=== PATIENT | male | born 1980 | race Caucasian/White ===

== ENCOUNTER 2016-09-13 19:00 | Emergency (ER) | payer SELFPAY ==
[~2016-09-13] VITALS: Ht 170.2 cm; Wt 65.0 kg
[2016-09-13 19:03] VITALS: BP 134/84; PULSE 81; RESP 15; TEMP 99.1; O2SAT 99
[2016-09-13 23:27] VITALS: BP 154/89; PULSE 62; RESP 16; O2SAT 100
[2016-09-13] MEDS ORDERED: PANTOPRAZOLE SODIUM 40 MG VIAL IVP ONE (23:30)
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
[2016-09-13 23:46] LABS: AUTOMATED NEUTROPHIL # 2.5 TH/MM3 (1.8-7.7); BASOPHIL % 0.2 % (0.0-2.0); EOSINOPHIL # 0.2 TH/MM3 (0-0.4); EOSINOPHIL % 3.5 % (0.0-4.0); HEMATOCRIT 49.3 % (39.0-51.0); HEMO FLAGS DIFF FINAL; LYMPH % 40.8 % (9.0-44.0); LYMPHOCYTE # 2.5 TH/MM3 (1.0-4.8); MEAN CORPUSCULAR HGB CONC 33.3 % (32.0-36.0); MONO % 15.4 % (0.0-8.0); NEUT % 40.1 % (16.0-70.0); PLATELET COUNT 247 TH/MM3 (150-450); RED BLOOD COUNT 5.88 MIL/MM3 (4.50-5.90); RED CELL DISTRIBUTION WIDTH 13.7 % (11.6-17.2); WHITE BLOOD COUNT 6.1 TH/MM3 (4.0-11.0)
[2016-09-14 00:03] LABS: ANION GAP 3 MEQ/L (5-15); AST (GOT) 21 U/L (15-37); BICARBONATE 32.8 MEQ/L (21.0-32.0); BLOOD UREA NITROGEN 11 MG/DL (7-18); CHLORIDE 104 MEQ/L (98-107); GLOMERULAR FILTRATION RATE 91 ML/MIN (>89); POTASSIUM 3.9 MEQ/L (3.5-5.1); SODIUM (NA) 140 MEQ/L (136-145)
[2016-09-14 00:06] LABS: ALKALINE PHOSPHATASE 92 U/L (45-117); ALT (GPT) 32 U/L (12-78); TOTAL BILIRUBIN ADULT 0.3 MG/DL (0.2-1.0)
[2016-09-14 00:14] LABS: AMPHETAMINE, URINE NEG (NEG); BARBITURATES, URINE NEG (NEG); COCAINE, URINE NEG (NEG)
[2016-09-14 00:16] LABS: BLOOD, URINE NEG (NEG); COMMENT (UR) CULT NOT INDICATED; CULTURE IF INDICATED CULT NOT INDICATED; GLUCOSE,URINE NEG (NEG); KETONE, URINE NEG (NEG); MUCUS URINE FEW /lpf (OCC); NITRITE,URINE NEG (NEG); PH, URINE 5.5 (5.0-8.5); URINE COLOR YELLOW (YELLW/STRAW)
[2016-09-14] MEDS ORDERED: OMEP20TA PO (02:55)
[2016-09-14 03:04] VITALS: BP 105/71
== END 2016-09-14 03:06 | disposition home or self-care (01) ==
LOC: NEPE 19:00
DX: K29.70 Gastritis, unspecified, without bleeding (principal)
CPT/HCPCS: 80053; 80307; 81001; 83690; 85025; 96374; 99284; C9113

== ENCOUNTER 2016-09-17 09:04 | Emergency (ER) | payer SELFPAY ==
[~2016-09-17] VITALS: Ht 170.2 cm; Wt 75.8 kg
[~2016-09-17 09:04] MED LIST: OMEP20TA PO
[2016-09-17 09:06] VITALS: BP 142/74; PULSE 82; RESP 16; TEMP 99; O2SAT 99
--- NOTE | 2016-09-17 09:38 | PD ---
HPI Chief Complaint: Medical Clearance Time Seen by Provider: 09:38 Travel History International Travel<30 days: No Contact w/Intl Traveler<30days: No Traveled to known affect area: No History of Present Illness HPI 36-year-old male presents to the emergency department requesting shots for hepatitis, ink poisoning, nicotine poisoning, and an injection to help him get use to breathing the air. He says he needs obvious shots to help him. 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 He says he has increased poisoning in his veins from getting his tattoos. He reports his veins are getting thin and drying up. He says he is new to the area and is getting use to breathing the air and he knows there is an injection to help him breathe air. He has no emergent medical complaints. No other modifying factors or associated signs and symptoms. History Social History Alcohol Use: Yes Tobacco Use: Yes Allergies-Medications (Allergen,Severity, Reaction): Coded Allergies: Pineapple (Verified Allergy, Severe, 09/17/16) Reported Meds & Prescriptions Reported Meds & Active Scripts Active Omeprazole 20 Mg Tab 20 Mg PO DAILY 5 Days Review of Systems Except as stated in HPI: all other systems reviewed are Neg Physical Exam Narrative GENERAL: Well-nourished, well-developed male patient, in no acute distress; afebrile, nontoxic-appearing SKIN: Warm and dry. Bilateral upper extremities with multiple tattoos and I see no signs of infection. HEAD: Atraumatic. Normocephalic. EYES: Pupils equal and round. ENT: Mucosa pink and moist. NECK: Supple. Trachea midline. CARDIOVASCULAR: Regular rate and rhythm. No murmur appreciated. RESPIRATORY: No accessory muscle use. Clear to auscultation. Breath sounds equal bilaterally. GASTROINTESTINAL: Abdomen soft, non-tender, nondistended. Hepatic and splenic margins not palpable. Bowel sounds are active 4 quadrants. MUSCULOSKELETAL: No obvious deformities. No clubbing. No cyanosis. No edema. NEUROLOGICAL: Awake and alert. Oriented 3. No obvious cranial nerve deficits. Motor grossly within normal limits. Normal speech. Moves all extremities. 5/5 strength to all extremities. PSYCHIATRIC: No delusional thought processes. No hallucinations. Data Data Last Documented VS Vital Signs Date Time Temp Pulse Resp B/P Pulse Ox O2 Delivery O2 Flow Rate FiO2 09/17/16 09:06 99.0 82 16 142/74 99 Room Air [facility] Medical Screen Exam Complete: Yes Emergency Medical Condition: No Differential Diagnosis Medical clearance, malingering, bipolar disorder Narrative Course 36-year-old male requesting vaccinations and injections for nonemergent complaints. The patient was provided information to the health department. Vital signs are stable and the patient is stable for outpatient follow-up and treatment. The patient has no urgent or emergent medical complaints. There is no emergent or urgent medical need at this time. I instructed the patient to follow up with their primary care provider. A medical screening exam was performed: At the time of evaluation the presenting medical condition was determined not to be of an emergent nature. The patient was given the option of receiving additional care, but declined. Patient was given options for additional community resources from which to obtain care. The Patient Has Been advised to seek medical attention for their presenting complaint. The patient has been advised to return to the ER at any time if an emergent condition develops. Primary Impression: Encounter for medical screening examination Condition: Stable Alba Najera September 17, 2016 09:38
== END 2016-09-17 10:30 | disposition left against medical advice (07) ==
LOC: NEPK 09:04
DX: Z03.89 Encounter for observation for other suspected diseases and conditions ruled out (principal)
CPT/HCPCS: 99281

== ENCOUNTER 2016-09-25 12:24 | Inpatient (IN) | payer MEDICAID, OTHER ==
[~2016-09-25] VITALS: Ht 170.2 cm; Wt 72.9 kg
[2016-09-25 12:25] VITALS: BP 165/80; PULSE 92; RESP 16; TEMP 98.4; O2SAT 99
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
[2016-09-25 14:17] LABS: AUTOMATED NEUTROPHIL # 3.2 TH/MM3 (1.8-7.7); BASOPHIL % 0.5 % (0.0-2.0); EOSINOPHIL # 0.1 TH/MM3 (0-0.4); EOSINOPHIL % 1.1 % (0.0-4.0); HEMATOCRIT 48.7 % (39.0-51.0); HEMO FLAGS DIFF FINAL; LYMPH % 27.7 % (9.0-44.0); LYMPHOCYTE # 1.5 TH/MM3 (1.0-4.8); MEAN CELL VOLUME 83.3 FL (80.0-100.0); MEAN CORPUSCULAR HEMOGLOBIN 28.3 PG (27.0-34.0); MEAN CORPUSCULAR HGB CONC 33.9 % (32.0-36.0); MONO % 12.5 % (0.0-8.0); NEUT % 58.2 % (16.0-70.0); PLATELET COUNT 269 TH/MM3 (150-450); RED BLOOD COUNT 5.85 MIL/MM3 (4.50-5.90); RED CELL DISTRIBUTION WIDTH 13.8 % (11.6-17.2); WHITE BLOOD COUNT 5.5 TH/MM3 (4.0-11.0)
[2016-09-25 14:29] LABS: BARBITURATES, URINE NEG (NEG); COCAINE, URINE NEG (NEG)
[2016-09-25 14:32] LABS: ANION GAP 7 MEQ/L (5-15); AST (GOT) 18 U/L (15-37); BICARBONATE 30.4 MEQ/L (21.0-32.0); BLOOD UREA NITROGEN 12 MG/DL (7-18); CHLORIDE 104 MEQ/L (98-107); GLOMERULAR FILTRATION RATE 91 ML/MIN (>89); SODIUM (NA) 141 MEQ/L (136-145)
[2016-09-25 14:35] LABS: ALKALINE PHOSPHATASE 91 U/L (45-117); ALT (GPT) 28 U/L (12-78); TOTAL BILIRUBIN ADULT 0.3 MG/DL (0.2-1.0)
--- NOTE | 2016-09-25 15:15 | PD ---
Physical Exam Date Seen by Provider: September 25, 2016 Time Seen by Provider: 15:13 Narrative Patient was assessed by me. Currently being followed up by the PA and I'm supervising her. Patient seems frankly psychotic at this point. He was answering all my questions with a very paranoid delusion. Speech has been very pressured. Questions are answered by him tangentially probably from the paranoid delusions. He says he is here to get the pills pumped out from his stomach that he had received a week to 10 days ago when he came to this emergency room. He finished taking the pills 5 days ago. Patient is homeless and appears to be somewhat disheveled and sunburned. He does not appear to be in any significant distress. Vital signs are relatively stable. Plan would be to medically clear him and then have psych assessment. Due to his significant psychosis patient will be Calix acted since he seems to be unsafe to others. Data Data Last Documented VS Vital Signs Date Time Temp Pulse Resp B/P Pulse Ox O2 Delivery O2 Flow Rate FiO2 09/26/16 06:21 62 19 120/57 97 Room Air 09/25/16 12:25 98.4 Orders Complete Blood Count With Diff (09/25/16 13:53) Comprehensive Metabolic Panel (09/25/16 13:53) Psych Screen (09/25/16 13:53) Drug Screen, Random Urine (09/25/16 13:53) Alcohol (Ethanol) (09/25/16 13:53) ^ Sitter (09/25/16 13:57) Diet Regular Basic (09/25/16 Dinner) Diet Regular Basic (09/26/16 Breakfast) Admit Order (Ed Use Only) (09/26/16 ) Admit To Inpatient Psych (09/26/16 ) Vital Signs (Adult) [id number] (09/26/16 08:41) Activity Oob Ad Mariah (09/26/16 08:41) Level Of Observation (Psych) (09/26/16 08:41) Aims-Abnormal Invol Move Scale ONCE (09/26/16 08:41) Lorazepam (Ativan) (09/26/16 08:45) Lorazepam Inj (Ativan Inj) (09/26/16 08:45) Diphenhydramine (Benadryl) (09/26/16 08:45) Acetaminophen (Tylenol) (09/26/16 08:45) Magnesium Hydroxide Liq (Milk Of Magnesi (09/26/16 08:45) Al-Mag Hy-Si 40-40-4 Mg/Ml Liq (Mag-Al P (09/26/16 08:45) Nicotine 21 Mg Patch.24 Hr (Habitrol 21 (09/26/16 09:00) Benztropine (Cogentin) (09/26/16 08:45) Benztropine Inj (Cogentin Inj) (09/26/16 08:45) Lipid Profile (09/27/16 06:00) Hemoglobin (Hgb) A1c (09/27/16 06:00) Ob/Psych Drug Screen, Urine (09/26/16 08:41) Remove Old Patch (09/26/16 09:00) Haloperidol (Haldol) (09/26/16 09:00) Labs Laboratory Tests Test 09/25/16 14:00 White Blood Count 5.5 TH/MM3 Red Blood Count 5.85 MIL/MM3 Hemoglobin 16.5 GM/DL Hematocrit 48.7 % Mean Corpuscular Volume 83.3 FL Mean Corpuscular Hemoglobin 28.3 PG Mean Corpuscular Hemoglobin 33.9 % Concent Red Cell Distribution Width 13.8 % Platelet Count 269 TH/MM3 Mean Platelet Volume 8.7 FL Neutrophils (%) (Auto) 58.2 % Lymphocytes (%) (Auto) 27.7 % Monocytes (%) (Auto) 12.5 % Eosinophils (%) (Auto) 1.1 % Basophils (%) (Auto) 0.5 % Neutrophils # (Auto) 3.2 TH/MM3 Lymphocytes # (Auto) 1.5 TH/MM3 Monocytes # (Auto) 0.7 TH/MM3 Eosinophils # (Auto) 0.1 TH/MM3 Basophils # (Auto) 0.0 TH/MM3 CBC Comment DIFF FINAL Differential Comment Sodium Level 141 MEQ/L Potassium Level 4.0 MEQ/L Chloride Level 104 MEQ/L Carbon Dioxide Level 30.4 MEQ/L Anion Gap 7 MEQ/L Blood Urea Nitrogen 12 MG/DL Creatinine 0.95 MG/DL Estimat Glomerular Filtration 91 ML/MIN Rate Random Glucose 82 MG/DL Calcium Level 9.3 MG/DL Total Bilirubin 0.3 MG/DL Aspartate Amino Transf 18 U/L (AST/SGOT) Alanine Aminotransferase 28 U/L (ALT/SGPT) Alkaline Phosphatase 91 U/L Total Protein 7.8 GM/DL Albumin 4.2 GM/DL Urine Opiates Screen NEG Urine Barbiturates Screen NEG Urine Amphetamines Screen NEG Urine Benzodiazepines Screen NEG Urine Cocaine Screen NEG Urine Cannabinoids Screen NEG Ethyl Alcohol Level LESS THAN 3 MG/DL MDM Supervised Visit with TJ: Yes Diagnosis Primary Impression: Acute psychosis Scripts Unable to Obtain Active Prescriptions or Reported Meds Alex Chandler MD September 25, 2016 15:15
[2016-09-25 18:30] VITALS: BP 130/79; PULSE 63; RESP 16; O2SAT 98
[2016-09-25 21:21] VITALS: BP 134/86; PULSE 89; RESP 16; O2SAT 98
[2016-09-25 22:00] VITALS: BP 124/66; PULSE 62; RESP 16; O2SAT 100
[2016-09-26 02:17] VITALS: BP 111/53; PULSE 54; RESP 17; O2SAT 97
[2016-09-26 06:21] VITALS: BP 120/57; PULSE 62; RESP 19; O2SAT 97
[2016-09-26] MEDS ORDERED: diphenhydrAMINE HCL 50 MG CAP PO PRN (08:45)
[2016-09-26] MEDS ORDERED: ACETAMINOPHEN 325 MG TAB PO PRN (08:45)
[2016-09-26] MEDS ORDERED: BENZTROPINE MESYLATE 2 MG/2 ML VIAL IM PRN (08:45)
[2016-09-26] MEDS ORDERED: ALUMINUM/MAGNESIUM/SIMETH 30 ML CUP PO PRN (08:45)
[2016-09-26] MEDS ORDERED: LORazepam 2 MG/ML VIAL IM PRN (08:45)
[2016-09-26] MEDS ORDERED: BENZTROPINE MESYLATE 1 MG TAB PO PRN (08:45)
[2016-09-26] MEDS ORDERED: MAGNESIUM HYDROXIDE SUSP 30 ML CUP PO PRN (08:45)
[2016-09-26] MEDS ORDERED: LORazepam 1 MG TAB PO PRN (08:45)
[2016-09-26] MEDS: REMOVE OLD PATCH T-DERMAL SCH (09:00)
[2016-09-26] MEDS: HALOPERIDOL 5 MG TAB PO SCH ×2 (09:00→21:00)
[2016-09-26] MEDS: NICOTINE 21 MG/24 HR PATCH T-DERMAL SCH (09:00)
--- NOTE | 2016-09-26 09:28 | MH ---
cc: HARRIET GIVENS DATE OF ADMISSION 09/26/2016 ADMISSION DIAGNOSES 1. Other psychotic disorder, F28 LEGAL STATUS The patient is presently not capacitated to consent for admission or for medications. Involuntary status. Request health care surrogate and guardian advocate. HISTORY OF PRESENT ILLNESS Mr. Wise is a 36-year-old male of uncertain past psychiatric history who presented initially to the emergency department requesting that his stomach be pumped after taking pills that were reportedly prescribed from here. He was noted by the ED provider to be quite erratic and was placed under the [facility]. Reviewing our electronic medical record, I see no prior psychiatric consultations or admissions within our system. It does appear that he was seen in April of last year for psychiatric complaints and was sent to [facility] at that time. The patient seen and examined. Chart reviewed. Case discussed with nursing staff in the J pod. On my examination today, the patient presents as disorganized and delusional. When I endeavor to obtain past psychiatric history for example, the patient tells me "I had my balls bit by a dog when I was younger. My balls are too high." When I tried to explore again whether he has a history of psychiatric issues, he says "yes I have psychiatric issues because everything has to do with testicles. I need hernia pills for my balls. I know how high they are supposed to be." When I inquire about audiovisual hallucinations, he says "I hear far away voices saying I need my balls lowered." He also articulates a belief that his elevated testicles are "sucking up everything, all my extra air down there." When I inquire about suicidal or homicidal ideation, he says "I am not going to give you my balls." He also alludes to his mother being a Elastic Attacher Coverstitch's and his father "close enough." Affect is bizarre. The psychiatric interview is quite limited because of his degree of thought disorganization. PAST PSYCHIATRIC HISTORY Fairly limited as noted above. When I inquire about a history of psychiatric admissions, this is fruitless. When I inquire about a history of suicide attempts, he says "I do not think so." It does appear from the medical record that he was sent to [facility] when he was here in April. FAMILY HISTORY The patient says "I drink beer piss." CHEMICAL DEPENDENCY HISTORY The patient denies any abuse of drugs or alcohol initially, but then says "I tried sarai once." He is unable to tell me what this substance is. SOCIAL HISTORY The patient seems to say that he lives at the [facility]. He is single with no children. He is high school educated. When I inquire about history. He is says "wearing pullbacks and socks?" He denies any legal history. He says that the only guns that he has "are in my underwear." PAST MEDICAL HISTORY The patient reports no history of medical problems. ALLERGIES Includes allergies to PINEAPPLE. REVIEW OF SYSTEMS Quite limited because of the patient's current mental state. No reported physical complaints at this time. PHYSICAL EXAMINATION Temperature is 98.4, pulse 62, and respirations 19, blood pressure 120/57, pulse oximetry 97% on room air. Physical examination completed by the ED provider. On my examination today, the patient appears to be in no acute physical distress. No motor abnormalities noted. LABORATORIES REVIEWED CBC is unremarkable. CMP is unremarkable. Basic urine toxicology screen is negative and alcohol level was undetectable. MENTAL STATUS EXAM The patient is in hospital gown. He is fairly well-groomed and appears to be maintaining basic hygiene. He is awake and alert and oriented to person and hospital at least. No evidence of delirium. No motor abnormalities noted. Speech is within normal limits for rate, tone and volume. Language and fund of knowledge are difficult to assess given thought process. Mood and affect are odd. Thought process disorganized. Associations are perseverative on his testicles. It appears there is some delusion perhaps somatic in nature of his testicles being to high. Purports to hear auditory hallucinations as detailed above. No visual hallucinations. Unable to deny suicidal or homicidal ideation as detailed above. Unreliable to contract for safety. Insight and judgment seem poor. ASSESSMENT/PLAN This is a 36-year-old male with psychiatric history as detailed above who is presently in the J pod under a [facility] initiated by the ED provider. The patient seems to be perseverating on his testicles in a fairly psychotic fashion. My differential for this would include exacerbation of a primary psychotic illness, psychotic illness due to a heretofore unidentified substance, and malingering for long term as it appears that he is presently homeless. His presentation is somewhat excessive lending some credence to the malingering hypothesis. I am less suspicious of a medical etiology as the patient has no evident laboratory abnormalities or physical examination findings that would suggest one. I will admit the patient to the inpatient psychiatric unit for observation and stabilization if necessary. Admit inpatient. Involuntary status. I have completed first opinion. Consult for second opinion. Request health care surrogate and guardian advocate. I did endeavor to call for collateral, but the patient is unable to provide me any numbers and there are none in the EMR for me to call. I will initiate Haldol 5 mg daily pending approval of a healthcare surrogate when we get one. I will check an extended urine toxicology screen. Ativan as needed for anxiety, Cogentin as needed for EPS, Benadryl as needed for sleep. Vitals every shift. Counselor to see and try to obtain collateral. Disposition planning. Estimated length of stay: 5-7 days. Harriet MODI /8:47 AM /9:10 AM MTDLiliana
[2016-09-26] MEDS ORDERED: OLANZapine IM 10 MG VIAL IM ONE (11:00)
[2016-09-26 12:15] VITALS: BP 113/58; PULSE 59; RESP 18; TEMP 97.4; O2SAT 97
[2016-09-26 17:19] VITALS: BP 110/66; PULSE 60; RESP 18; TEMP 97.6
[2016-09-27 01:10] LABS: AMPHETAMINE, URINE NEG (NEG); BARBITURATES, URINE NEG (NEG); COCAINE, URINE NEG (NEG)
[2016-09-27 01:26] LABS: AMPHETAMINE, URINE NEG (NEG)
[2016-09-27 06:10] VITALS: BP 107/63; PULSE 56; RESP 18; TEMP 97.4; O2SAT 96
[2016-09-27] MEDS: NICOTINE 21 MG/24 HR PATCH T-DERMAL SCH (09:00)
[2016-09-27] MEDS: HALOPERIDOL 5 MG TAB PO SCH ×2 (09:00→21:00)
[2016-09-27] MEDS: REMOVE OLD PATCH T-DERMAL SCH (09:00)
[2016-09-27 10:34] LABS: HDL CHOLESTEROL 56.9 MG/DL (40.0-60.0); LDL CHOLESTEROL 53 MG/DL (0-99)
--- NOTE | 2016-09-27 10:36 | HHI.PYPN ---
Subjective Remarks Patient seen and examined with nursing staff. Chart reviewed. Case discussed with nurse who reports patient has been no behavioral problem. Charting indicates that he is eating well and slept well overnight. On my examination today, patient is more relevant in conversation. He is polite and cooperative. He continues to perseverate on his testicles, noting "I'm breathing everything out. My testicles are coming down a little, the left one more than the right." He thinks this might be related to a new genital piercing he got. He does note that sometimes "when I sit down on metal or cement, I think I'm being molested by hands on the floor." He does report a history of psychotropic medication treatment including Risperdal and maybe lithium, but he does not believe he has a mental illness issue in need of treatment at this time. He does not really believe he needs to be in the psychiatric hospital but is willing to remain overnight for observation. No SI/HI. Review of Systems ROS Limitations: Psychotic, Poor Historian Except as stated in HPI: all other systems reviewed are Neg Objective Alert: Yes [place]: Person, Place, Date Mood: Calm Affect: Appropriate Memory Intact: Comment (Seems at least fair) Hallucinations: Other (No AVH) Delusions: Yes Delusion Type: Other (bizarre, somatic) Suicidal: Ideation (No SI) Homicidal: Ideation (No HI) Insight/Judgment Poor Remarks TP fairly linear within delusional system. Speech wnl for rate, tone, volume. No abnormal motor movements noted. Grooming and hygiene appear good. Labs Test 09/27/16 08:43 Triglycerides Level 88 MG/DL Cholesterol Level 127 MG/DL LDL Cholesterol 53 MG/DL HDL Cholesterol 56.9 MG/DL Cholesterol/HDL Ratio 2.23 RATIO Labs reviewed. Vitals/IOs Vital Signs Date Time Temp Pulse Resp B/P Pulse Ox O2 Delivery O2 Flow Rate FiO2 09/27/16 06:10 97.4 56 18 107/63 96 09/26/16 06:21 Room Air Assessment & Plan Problem List: (1) Other psychotic disorder not due to a substance or known physiological condition ICD Code: F28 Assessment & Plan Patient continues to describe bizarre and somatic delusions but otherwise seems to be attending to his ADLs. No evidence of any suicidality/homicidality. I have suggested that the patient accept medication treatment as he reportedly has in the past, but he declines. I am considerably less certain that the patient meets [facility] criteria at this point. I will monitor overnight, but if the patient continues to present as he does today, he likely will not meet [facility] Act criteria at this time and so will have to be discharged at expiry of the [facility] Act tomorrow afternoon unless he can be convinced to remain here voluntarily for treatment. Justification for Cont. Inpt. Monitoring for impairments in safety; so far none. Discharge Planning Pending outcome of observation Romulo Brown MD September 27, 2016 10:36
[2016-09-27 16:45] VITALS: BP 131/61; PULSE 59; RESP 16; TEMP 98; O2SAT 100
[2016-09-27 16:51] LABS: HEMOGLOBIN A1a 1.2 %; HEMOGLOBIN A1b 1.6 %; HEMOGLOBIN Ao 85.7 %; HEMOGLOBIN LA1C 1.8 %; HEMOGLOBIN P3 3.5 %
[2016-09-28 06:11] VITALS: BP 101/55; PULSE 58; RESP 18; TEMP 98; O2SAT 100
--- NOTE | 2016-09-28 10:01 | HHI.DS ---
Psychiatry Discharge Summary Inpatient Psychiatric care?: Yes Advance Directive: No Reason Not Provided: DOES NOT HAVE Mental Health AdvanceDirective: No Health Care Proxy: No Admission Admission Date September 26, 2016 at 08:44 Admission Diagnosis: (1) Other psychotic disorder not due to a substance or known physiological condition ICD Code: F28 Brief History Mr. Wise is a 36-year-old male of uncertain past psychiatric history who presented initially to the emergency department requesting that his stomach be pumped after taking pills that were reportedly prescribed from here. He was noted by the ED provider to be quite erratic and was placed under the [facility]. Reviewing our electronic medical record, I see no prior psychiatric consultations or admissions within our system. It does appear that he was seen in April of last year for psychiatric complaints and was sent to [facility] at that time. The patient seen and examined. Chart reviewed. Case discussed with nursing staff in the J pod. On my examination today, the patient presents as disorganized and delusional. When I endeavor to obtain past psychiatric history for example, the patient tells me "I had my balls bit by a dog when I was younger. My balls are too high." When I tried to explore again whether he has a history of psychiatric issues, he says "yes I have psychiatric issues because everything has to do with testicles. I need hernia pills for my balls. I know how high they are supposed to be." When I inquire about audiovisual hallucinations, he says "I hear far away voices saying I need my balls lowered." He also articulates a belief that his elevated testicles are "sucking up everything, all my extra air down there." When I inquire about suicidal or homicidal ideation, he says "I am not going to give you my balls." He also alludes to his mother being a Receptionist Telephone Operator's and his father "close enough." Affect is bizarre. The psychiatric interview is quite limited because of his degree of thought disorganization. Tobacco Use In Past 30 Days: No Tobacco Past 30 Days Alcohol Use: Never Hospital Course Patient was admitted to a locked, inpatient psychiatric unit. Appropriate precautions were in place throughout patient's hospital stay. Patient was seen and examined daily on the unit by psychiatry and also visited by counselor. Patient declined medication management. Despite this, he seemed to have improvement in his presenting psychiatric symptomatology during the course of his hospital stay. There was no evidence of any suicidality or homicidality on the inpatient unit. Patient remained in good behavioral control. Charting indicates that he has been sleeping and eating well. On the day of discharge: Patient seen and examined with nurse. Chart reviewed. Case discussed with nursing staff who reports that the patient has been no behavioral problem overnight. On my examination today, the patient is calm and cooperative with examination. His thought process seems logical and linear. He requests discharge from the inpatient psychiatric unit. He does continue to exhibit a somatic preoccupation, but this is significantly attenuated versus his initial presentation. There is no chante delusional material today. He denies audiovisual hallucinations. He denies suicidal or homicidal ideation, intent or plan. He has no physical complaints. He continues to decline any psychotropic medications. Weighing the acute, chronic, and protective factors and based on the available evidence, I catering sales manager to a reasonable degree of medical certainty that the patient is at low imminent risk of harm to self or others from a mental illness as defined under the [facility] act and his level of function is adequate for outpatient care. Consequently, the patient does not meet criteria for involuntary psychiatric hospitalization. Given that the patient does not meet criteria for involuntary psychiatric hospitalization and given that he is requesting discharge from the inpatient psychiatric unit today, I must arrange for his discharge today with psychiatric follow-up as arranged by counselor. Patient is also to follow-up with primary care. I counseled the patient regarding warning signs for need to return to the psychiatric emergency room as part of the general safety plan. I have counseled the patient to abstain from substances of abuse. Results Blood Pressure 101 / 55 Vital Signs Date Time Temp Pulse Resp B/P Pulse Ox O2 Delivery O2 Flow Rate FiO2 09/28/16 06:11 98.0 58 18 101/55 100 09/26/16 06:21 Room Air Laboratory Tests Test 09/25/16 14:00 Monocytes (%) (Auto) 12.5 % (0.0-8.0) Laboratory Results Test 09/27/16 08:43 Hemoglobin A1c 5.5 % (4.3-6.0) Triglycerides Level 88 MG/DL (42-150) Cholesterol Level 127 MG/DL (120-200) LDL Cholesterol 53 MG/DL (0-99) HDL Cholesterol 56.9 MG/DL (40.0-60.0) Summary of Procedures None done Imaging None done Pending results at discharge: Yes (Extended tox screen results pending.) Medications # of Antipsychotic meds at D/C: 0 Approp Antipsych med options 1 - Minimum of three failed multiple trials of monotherapy. 2 - Documented plan to taper to monotherapy due to previous use of multiple meds OR cross-taper in progress at D/C. 3 - Documentation of augmentation of Clozapine. 4 - Justification other than those listed in allowable values 1-3, document here : Discharge Discharge Date: September 28, 2016 Discharge Diagnosis: (1) Other psychotic disorder not due to a substance or known physiological condition Diagnosis: Principal (stabilized) ICD Code: F28 GAF on discharge is 55. Mental Status Exam at Disch Patient is casually dressed. He is well groomed and certainly maintaining basic hygiene. He is awake and alert and oriented 3. No evidence of delirium. No abnormal motor movements noted. Speech is within normal limits for rate, tone and volume. Language and fund of knowledge seemed average. Mood is good and affect is full and reactive. Thought process linear. No loosening of associations. No evident delusional material although somatic preoccupation does persist. Denies audiovisual hallucinations. Denies suicidal or homicidal ideation, intent or plan. Insight and judgment are fair at best. Pt Condition on Discharge: Stable Discharge Disposition: Discharge Home Discharge Instructions Diet Instructions: As Tolerated, No Restrictions Activities you can perform: Weight Bearing as Omaira Scheduled Appointment: [facility] Appointment Date: October 04, 2016 Appointment Time: 7:30am Medication Profile: Unable to Obtain Active Prescriptions or Reported Meds Discharge Time <= 30 minutes Discharge/Advance Care Plan Health Problems: (1) Other psychotic disorder not due to a substance or known physiological condition Goals to promote your health * To prevent worsening of your condition and complications * To maintain your health at the optimal level Directions to meet your goals Take your medications as prescribed Follow your dietary instruction Follow activity as directed Keep your appointments as scheduled Take your immunizations and boosters as scheduled If your symptoms worsen call your PCP, if no PCP go to Urgent Care Center or Emergency Room For 10/12 questions related to your inpatient stay or results of tests pending at discharge, please contact Dr. Romulo Brown at Smoking is Dangerous to Your Health. Avoid second hand smoking Romulo Brown MD September 28, 2016 10:01
[2016-10-01 11:00] LABS: ECSTASY (MDMA) UR NEG (NEG); HEROIN (6-ACETYLMORPHINE) UR NEG (NEG); OBMETHADONE UR NEG (NEG); PHENCYCLIDINE URINE NEG (NEG)
[2016-10-01 11:01] LABS: BATH SALTS (MDPV) UR NEG (NEG); GABAPENTIN UR NEG (NEG); HYDROMORPHONE U NEG (NEG); K2 SPICE UR NEG (NEG); OXYCODONE (PERCODAN) NEG (NEG)
== END 2016-09-28 12:35 | disposition home or self-care (01) | DRG 885 ==
LOC: NEPD 12:24 → NEDA 09-26 08:44 → H270 09-26 12:05
PROVIDERS: ADMIT Psychiatry & Neurology Psychiatry; ATTEND Psychiatry & Neurology Psychiatry
DX: F28 Other psychotic disorder not due to a substance or known physiological condition (principal); F41.9 Anxiety disorder, unspecified; F17.210 Nicotine dependence, cigarettes, uncomplicated; Z59.0 Homelessness
CPT/HCPCS: 80053; 80061; 80307; 83036; 85025; 99284; G0481

== ENCOUNTER 2017-01-01 06:06 | Inpatient (IN) | payer MEDICAID, OTHER ==
[~2017-01-01] VITALS: Ht 175.3 cm; Wt 72.9 kg
[2017-01-01 06:08] VITALS: BP 118/72; PULSE 58; RESP 16; TEMP 98.4; O2SAT 99
[2017-01-01] MEDS ORDERED: SERO25TA PO (06:19)
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
[2017-01-01 06:58] LABS: AUTOMATED NEUTROPHIL # 2.8 TH/MM3 (1.8-7.7); BASOPHIL % 0.6 % (0.0-2.0); EOSINOPHIL # 0.2 TH/MM3 (0-0.4); HEMATOCRIT 43.7 % (39.0-51.0); HEMO FLAGS DIFF FINAL; LYMPH % 31.3 % (9.0-44.0); LYMPHOCYTE # 1.7 TH/MM3 (1.0-4.8); MEAN CELL VOLUME 85.5 FL (80.0-100.0); MEAN CORPUSCULAR HEMOGLOBIN 27.9 PG (27.0-34.0); MEAN CORPUSCULAR HGB CONC 32.7 % (32.0-36.0); MONO % 12.8 % (0.0-8.0); NEUT % 52.3 % (16.0-70.0); PLATELET COUNT 216 TH/MM3 (150-450); RED BLOOD COUNT 5.12 MIL/MM3 (4.50-5.90); RED CELL DISTRIBUTION WIDTH 14.1 % (11.6-17.2); WHITE BLOOD COUNT 5.4 TH/MM3 (4.0-11.0)
[2017-01-01 07:02] LABS: BLOOD, URINE NEG (NEG); CALCIUM OXALATE CRYSTALS,URINE FEW /hpf; GLUCOSE,URINE NEG (NEG); KETONE, URINE NEG (NEG); MUCUS URINE FEW /lpf (OCC); NITRITE,URINE NEG (NEG); URINE COLOR YELLOW (YELLW/STRAW)
[2017-01-01 07:17] LABS: ALT (GPT) 39 U/L (12-78); ANION GAP 7 MEQ/L (5-15); AST (GOT) 20 U/L (15-37); BICARBONATE 26.1 MEQ/L (21.0-32.0); BLOOD UREA NITROGEN 15 MG/DL (7-18); CHLORIDE 109 MEQ/L (98-107); GLOMERULAR FILTRATION RATE 112 ML/MIN (>89); POTASSIUM 3.9 MEQ/L (3.5-5.1); SODIUM (NA) 142 MEQ/L (136-145)
[2017-01-01 07:18] LABS: ALKALINE PHOSPHATASE 83 U/L (45-117); TOTAL BILIRUBIN ADULT 0.4 MG/DL (0.2-1.0)
[2017-01-01 07:23] LABS: ALCOHOL LESS THAN 3 MG/DL (0-5)
--- NOTE | 2017-01-01 07:51 | PD ---
Physical Exam Date Seen by Provider: Jan 01, 2017 Time Seen by Provider: 07:50 Narrative 36-year-old male came to the emergency room with bizarre complains but psychotic features were noted by the previous ER physician. Please refer to his notes regarding further details on history and physical. He had [facility] acted the patient. The sign out was to follow-up on the labs and if he is medically cleared to turn him over to psych for psych screen. Blood test results of back and within acceptable limits. Patient is medically cleared. Waiting for psych screen. Data Data Last Documented VS Vital Signs Date Time Temp Pulse Resp B/P Pulse Ox O2 Delivery O2 Flow Rate FiO2 01/01/17 08:27 60 16 116/70 99 Room Air 01/01/17 06:08 98.4 Orders Ua Includes Microscopic (01/01/17 06:16) Complete Blood Count With Diff (01/01/17 06:38) Comprehensive Metabolic Panel (01/01/17 06:38) Psych Screen (01/01/17 06:38) Drug Screen, Random Urine (01/01/17 06:38) Alcohol (Ethanol) (01/01/17 06:38) Gc And Chlamydia Pcr (01/01/17 06:38) Diet Regular Basic (01/01/17 Breakfast) Diet Regular Basic (01/01/17 Lunch) Admit Order (Ed Use Only) (01/01/17 12:31) Labs Laboratory Tests Test 01/01/17 01/01/17 01/01/17 06:16 06:30 06:45 Urine Opiates Screen NEG Urine Barbiturates Screen NEG Urine Amphetamines Screen NEG Urine Benzodiazepines Screen NEG Urine Cocaine Screen NEG Urine Cannabinoids Screen NEG Chlamydia trachomatis DNA NOT DETECTED (PCR) Neisseria gonorrhoeae DNA NOT DETECTED (PCR) Urine Color YELLOW Urine Turbidity CLEAR Urine pH 6.0 Urine Specific Export 1.038 Urine Protein TRACE mg/dL Urine Glucose (UA) NEG mg/dL Urine Ketones NEG mg/dL Urine Occult Blood NEG Urine Nitrite NEG Urine Bilirubin NEG Urine Urobilinogen 2.0 MG/DL Urine Leukocyte Esterase NEG Urine RBC LESS THAN 1 /hpf Urine WBC 1 /hpf Urine Calcium Oxalate Crystals FEW /hpf Urine Mucus FEW /lpf White Blood Count 5.4 TH/MM3 Red Blood Count 5.12 MIL/MM3 Hemoglobin 14.3 GM/DL Hematocrit 43.7 % Mean Corpuscular Volume 85.5 FL Mean Corpuscular Hemoglobin 27.9 PG Mean Corpuscular Hemoglobin 32.7 % Concent Red Cell Distribution Width 14.1 % Platelet Count 216 TH/MM3 Mean Platelet Volume 8.6 FL Neutrophils (%) (Auto) 52.3 % Lymphocytes (%) (Auto) 31.3 % Monocytes (%) (Auto) 12.8 % Eosinophils (%) (Auto) 3.0 % Basophils (%) (Auto) 0.6 % Neutrophils # (Auto) 2.8 TH/MM3 Lymphocytes # (Auto) 1.7 TH/MM3 Monocytes # (Auto) 0.7 TH/MM3 Eosinophils # (Auto) 0.2 TH/MM3 Basophils # (Auto) 0.0 TH/MM3 CBC Comment DIFF FINAL Differential Comment Sodium Level 142 MEQ/L Potassium Level 3.9 MEQ/L Chloride Level 109 MEQ/L Carbon Dioxide Level 26.1 MEQ/L Anion Gap 7 MEQ/L Blood Urea Nitrogen 15 MG/DL Creatinine 0.79 MG/DL Estimat Glomerular Filtration 112 ML/MIN Rate Random Glucose 90 MG/DL Calcium Level 8.3 MG/DL Total Bilirubin 0.4 MG/DL Aspartate Amino Transf 20 U/L (AST/SGOT) Alanine Aminotransferase 39 U/L (ALT/SGPT) Alkaline Phosphatase 83 U/L Total Protein 6.5 GM/DL Albumin 3.4 GM/DL Ethyl Alcohol Level LESS THAN 3 MG/DL MDM Supervised Visit with TJ: No Diagnosis Primary Impression: Acute psychosis Alex Chandler MD Jan 01, 2017 07:51
[2017-01-01 08:27] VITALS: BP 116/70; PULSE 60; RESP 16; O2SAT 99
[2017-01-01] MEDS ORDERED: LORazepam 2 MG/ML VIAL IM PRN ×2 (12:45)
[2017-01-01] MEDS ORDERED: diphenhydrAMINE HCL 50 MG/ML VIAL IM PRN (12:45)
[2017-01-01] MEDS ORDERED: MAGNESIUM HYDROXIDE SUSP 30 ML CUP PO PRN (12:45)
[2017-01-01] MEDS ORDERED: diphenhydrAMINE HCL 50 MG CAP PO PRN (12:45)
[2017-01-01] MEDS ORDERED: LORazepam 0.5 MG TAB PO PRN (12:45)
--- NOTE | 2017-01-01 12:52 | HHI.HP ---
Provisional Diagnosis Admission Date [place] I. Schizophrenia, paranoid type Certification of Person's Competence To Provide Express and Informed Consent I have personally examined Jose Alberto Wise , a person being served at [facility] on, Jan 01, 2017 12:41. Express and informed consent means consent voluntarily given in writing, by a competent person, after sufficient explanation and disclosure of the subject matter involved to enable the person to make a knowing and willful decision without any element of force, fraud, deceit, duress, or other form of constraint or coercion. This person is 18 years of age or older, is not now known to be incompetent to consent to treatment with a guardian advocate, and does not have a health care surrogate or proxy currently making medical treatment decisions. I have found this person to be one of the following: [] Competent to provide express and informed consent, as defined above, for voluntary admission to this facility and is competent to provide express and informed consent for treatment. He/she has the consistent capacity to make well reasoned, willful, and knowing decisions concerning his or her medical or mental health treatment. The person fully and consistently understands the purpose of the admission for examination/placement and is fully capable of personally exercising all rights assured under [place] [x] Incompetent to provide express and informed consent to voluntary admission, and this is incompetent to provide express and informed consent to treatment. The person must be transferred to involuntary status and a petition for a guardian advocate filed with the Circuit Court. [] Refusing to provide express and informed consent to voluntary admission but is competent to provide express and informed consent for treatment. The person must be discharged or transferred to involuntary status. Form shall be completed within 24 hours of a person's arrival at the receiving facility and filed in the clinical record of each person: 1. Admitted on a voluntary basis 2. Permitted to provide express and informed consent to his/her own treatment 3. Allowed to transfer from involuntary to voluntary status 4. Prior to permitting a person to consent to his or her own treatment after having been previously found incompetent to consent to treatment. History of Present Illness Capacity: Lacks Capacity HPI This is a 36-year-old male currently [facility] acted by the emergency department physician for psychosis and inability to care for himself. Apparently the patient came to this hospital complaining of painful urination which he feels may be related to being tasered in the penis in the middle of the night. The patient is a very poor historian and demonstrates significant looseness of associations, often bordering on word salad. When interviewed by this physician , the patient made nonsensical remarks such as Dmitry is a hacker of the computer system. He feels a growth on his thumb is an indication there is something wrong with his penis. He appears to be rather fixated on somatic delusions regarding his genitals and this physician notes the patient was hospitalized last September, complaining that his testicles were "too high". The patient is clearly disorganized, confused, disoriented and unable to care for himself. He states [place] [address] He does not take medications because he is "allergic to cats". He is not oriented to his situation and is unable to provide a plan as to how he would care for himself. He appears to be responding to internal stimuli and he appears to have thought blocking. This physician notes in his last hospitalization, the patient was experiencing auditory hallucinations telling him his testicles were too high. Review of Systems ROS Limitations: Clinical Condition Except as stated in HPI: all other systems reviewed are Neg Past Psych History Psychological trauma history Unknown psychological trauma. Patient treated here at [facility] in September 2016. Apparently he was discharged without medication. He appears to have decompensated. Violence risk - others (6 mos) Moderate violence risk to others, who he blames for his genital problems. Violence risk - self (6 mos) Moderate risk for violence to self, as the patient continues to express the symptom of auditory hallucinations. Substance Abuse History Drugs/Alcohol past 12 months Denied Past Family Social History Coded Allergies: pineapple (Unverified Allergy, Severe, 01/01/17) Reported Medications Quetiapine (Seroquel)25 Mg Tab25 Mg PO BID #60 TAB Ref 0 01/01/17 Current Medications Medications (Trade) Dose Ordered Sig/Ronit Route Start Time Stop Time Status Last Admin (Ativan) 1 mg Q6H PRN PO 01/01/17 12:45 UNV (Ativan Inj) 1 mg Q6H PRN IM 01/01/17 12:45 UNV (Ativan) 0.5 mg Q12H PRN PO 01/01/17 12:45 UNV (Ativan Inj) 0.5 mg Q12H PRN IM 01/01/17 12:45 UNV (Benadryl) 50 mg Q6H PRN PO 01/01/17 12:45 UNV (Benadryl Inj) 50 mg Q6H PRN IM 01/01/17 12:45 UNV (Tylenol) 650 mg Q4H PRN PO 01/01/17 12:45 UNV (Milk Of Magnesia Liq) 30 ml DAILY PRN PO 01/01/17 12:45 UNV (Mag-Al Plus Susp Liq) 30 ml Q6H PRN PO 01/01/17 12:45 UNV (Desyrel) 50 mg HS PRN PO 01/01/17 12:45 UNV Family History Unknown. Patient is poor historian. Social History Unemployed and homeless. Appears to have been treated at [facility] in the past. Denies alcohol or drug abuse. Patient's Strengths (min. 2) Resilient and has access to healthcare. Physical Exam GENERAL: SKIN: Warm and dry. HEAD: Normocephalic. EYES: No scleral icterus. No injection or drainage. NECK: Supple, trachea midline. No JVD or lymphadenopathy. CARDIOVASCULAR: Regular rate and rhythm without murmurs, gallops, or rubs. RESPIRATORY: Breath sounds equal bilaterally. No accessory muscle use. GASTROINTESTINAL: Abdomen soft, non-tender, nondistended. MUSCULOSKELETAL: No cyanosis, or edema. BACK: Nontender without obvious deformity. No CVA tenderness. Vital Signs Vital Signs Date Time Temp Pulse Resp B/P Pulse Ox O2 Delivery O2 Flow Rate FiO2 01/01/17 08:27 60 16 116/70 99 Room Air 01/01/17 06:08 98.4 Mental Status Examination Speech: Incoherent Orientation: Person Memory: Impaired (describe) Thought Process: Loose Association Thought Content: Bizarre thinking, Paranoid Hallucination Type: Auditory Attention and Concentration: Easily Distracted Suicidal Ideation: No Previous Suicide Attempts: No Homicidal Ideation: No Previous Homicide Attempts: No Insight: Poor Judgment: WNL, Unrealistic Affect: Anxious Affect if Inappropriate: Blunt Mood: Anxious Motor Activity: Normal gait Assessment & Plan Problem List: (1) Schizophrenia, paranoid type ICD Code: F20.0 Assessment & Plan Estimated LOS: days this physician reviewed the patient's record and spoke to the nurse regarding his recent and current behavior. Additionally, the patient is seen as paranoid due to his somatic delusions and his belief that others are causing his genital issues. Patient is clearly unable to care for himself, states he has no place to stay and is oriented only to person. As such, he is being admitted for evaluation and treatment. This physician will start the patient on Abilify 2 assist with thought content and thought process problems. We will obtain a CBC and comprehensive metabolic profile to determine if any organic process is causing or contributing to his psychosis. Likewise, we will obtain a thyroid stimulating hormone level, vitamin B-12 level and vitamin D level to ascertain if any deficiencies in these areas is causing or contributing to his psychosis. We will also obtain a toxicology screen. We will obtain an EKG as many of the psychotropic medications prescribed can adversely affect his cardiac conduction system. A second psychiatric opinion is being sought regarding his treatment and civil commitment. Nurse management will be involved to help with information gathering, particularly from [facility] if he was seen there on an outpatient basis. Case management can also assist with disposition planning. Lon Scott MD Jan 01, 2017 12:52
[2017-01-01 13:47] LABS: CHLAMYDIA PCR NOT DETECTED (NOT DETECT); NEISSERIA PCR NOT DETECTED (NOT DETECT)
[2017-01-01 14:03] VITALS: BP 115/76; PULSE 55; RESP 18; O2SAT 98
[2017-01-01] MEDS: ARIPiprazole 2 MG TAB PO SCH (14:26)
[2017-01-01 14:59] VITALS: BP 115/76; PULSE 55; RESP 18; O2SAT 98
[2017-01-01 18:31] VITALS: BP 119/68; PULSE 48; RESP 16; TEMP 97.6; O2SAT 100
[2017-01-01] MEDS: LORazepam 1 MG TAB PO PRN (19:45)
[2017-01-01] MEDS: traZODone HCL 50 MG TAB PO PRN (23:11)
[2017-01-02 05:56] VITALS: BP 112/60; PULSE 71; RESP 16; TEMP 97.3; O2SAT 98
[2017-01-02] MEDS: ARIPiprazole 2 MG TAB PO SCH (09:00)
[2017-01-02] MEDS: LORazepam 1 MG TAB PO PRN ×2 (10:34→17:44)
[2017-01-02] MEDS ORDERED: HALOPERIDOL LACTATE 5 MG/ML AMP IM PRN (14:15)
--- NOTE | 2017-01-02 14:18 | PD.PSY.CON ---
Provisional Diagnosis Admission Date Jan 01, 2017 at 12:33 [place] I. Schizophrenia, paranoid type [place] II. Deferred [place] III. No significant medical history [place] IV. Homelessness [place] V. 37 History of Present Illness Service Psychiatry Consult Requested By Dr. Scott Reason for Consult Second opinion Primary Care Physician No Primary Care Physician HPI This is a 36-year-old male currently Calix acted by the emergency department physician for psychosis and inability to care for himself. Apparently the patient came to this hospital complaining of painful urination which he feels may be related to being tasered in the penis in the middle of the night. The patient is a very poor historian and demonstrates significant looseness of associations, often bordering on word salad. When interviewed by this physician , the patient made nonsensical remarks such as Seroquel is a hacker of the computer system. He feels a growth on his thumb is an indication there is something wrong with his penis. He appears to be rather fixated on somatic delusions regarding his genitals and this physician notes the patient was hospitalized last September, complaining that his testicles were "too high". The patient is clearly disorganized, confused, disoriented and unable to care for himself. He states [place] [address]. He does not take medications because he is "allergic to cats". He is not oriented to his situation and is unable to provide a plan as to how he would care for himself. He appears to be responding to internal stimuli and he appears to have thought blocking. This physician notes in his last hospitalization, the patient was experiencing auditory hallucinations telling him his testicles were too high. The patient is a 36-year-old man, homeless, single, unclear source of income, with a history of psychiatric history of psychosis, hospitalized in [facility] of September 2016 under the care of Dr. Brown, documentation reviewed, no psychotropic medications at this moment, no established outpatient care, and medical medical history, hospitalized in [facility] unit under Calix act due to disorganized behavior and inability to care of himself. On psychiatric evaluation today patient is grossly disorganized, with pronounced word salad, loosening of associations, tangentiality, and a very poor and unreliable historian at this moment. Patient denies the use of drugs and alcohol. He denies been taking medications. Review of Systems Constitutional: DENIES: Diaphoretic episodes, Fatigue, Fever, Weight gain, Weight loss, Chills, Dizziness, Change in appetite, Night Sweats Endocrine: DENIES: Heat/cold intolerance, Polydipsia, Polyuria, Polyphagia Eyes: DENIES: Blurred vision, Diplopia, Eye inflammation, Eye pain, Vision loss , Photosensitivity, Double Vision Ears, nose, mouth, throat: DENIES: Tinnitus, Hearing loss, Vertigo, Nasal discharge, Oral lesions, Throat pain, Hoarseness, Ear Pain, Running Nose, Epistaxis, Sinus Pain, Toothache, Odynophagia Respiratory: DENIES: Apneas, Cough, Snoring, Wheezing, Hemoptysis, Sputum production, Shortness of breath Cardiovascular: DENIES: Chest pain, Palpitations, Syncope, Dyspnea on Exertion , PND, Lower Extremity Edema, Orthopnea, Claudication Gastrointestinal: DENIES: Abdominal pain, Black stools, Bloody stools, Constipation, Diarrhea, Nausea, Vomiting, Difficulty Swallowing, Anorexia Musculoskeletal: DENIES: Joint pain, Muscle aches, Stiffness, Joint Swelling, Back pain, Neck pain Integumentary: DENIES: Abnormal pigmentation, Nail changes, Pruritus, Rash Hematologic/lymphatic: DENIES: Bruising, Lymphadenopathy Immunologic/allergic: DENIES: Eczema, Urticaria Neurologic: DENIES: Abnormal gait, Headache, Localized weakness, Paresthesias, Seizures, Speech Problems, Tremor, Poor Balance Psychiatric: DENIES: Anxiety, Confusion, Mood changes, Depression, Hallucinations, Agitation, Suicidal Ideation, Homicidal Ideation, Delusions Past Family Social History Coded Allergies: pineapple (Unverified Allergy, Severe, 01/01/17) Reported Medications Quetiapine (Seroquel)25 Mg Tab25 Mg PO BID #60 TAB Ref 0 01/01/17 Current Medications Medications (Trade) Dose Ordered Sig/Ronit Route Start Time Stop Time Status Last Admin (Ativan) 1 mg Q6H PRN PO 01/01/17 12:45 01/02/17 10:34 (Ativan Inj) 1 mg Q6H PRN IM 01/01/17 12:45 (Benadryl) 50 mg Q6H PRN PO 01/01/17 12:45 (Benadryl Inj) 50 mg Q6H PRN IM 01/01/17 12:45 (Tylenol) 650 mg Q4H PRN PO 01/01/17 12:45 (Milk Of Magnesia Liq) 30 ml DAILY PRN PO 01/01/17 12:45 (Mag-Al Plus Susp Liq) 30 ml Q6H PRN PO 01/01/17 12:45 (Desyrel) 50 mg HS PRN PO 01/01/17 12:45 01/01/17 23:11 (Abilify) 2 mg DAILY PO 01/01/17 13:00 01/02/17 09:00 Family History She denies family psychiatric history Social History Patient says he was born in [place], his parents are Jason Ricans, homeless, single, no source of income Patient's Strengths (min. 2) Resilient and has access to healthcare. Physical Exam Vital Signs Vital Signs Date Time Temp Pulse Resp B/P Pulse Ox O2 Delivery O2 Flow Rate FiO2 01/02/17 05:56 97.3 71 16 112/60 98 01/01/17 14:59 Room Air Mental Status Examination Appearance young man, but others, poor hygiene, non-cooperative, very disorder Speech: Incoherent Orientation: Person Memory: Impaired (describe) Thought Process: Loose Association Thought Content: Bizarre thinking, Paranoid Hallucination Type: Auditory Attention and Concentration: Easily Distracted Suicidal Ideation: No Previous Suicide Attempts: No Homicidal Ideation: No Previous Homicide Attempts: No Insight: Poor Judgment: WNL, Unrealistic Affect: Anxious Affect if Inappropriate: Blunt Mood: Anxious Motor Activity: Normal gait Assessment & Plan Problem List: (1) Schizophrenia, paranoid type Assessment & Plan: I have seen and examined this patient for follow-up and also for second opinion. I also has reviewed the documentation. I completely concur and agree with Dr. Scott's assessment and plan. We will increase Abilify to 5 mg daily. Add Haldol 5 mg IM every 8 hours when necessary aggressive behavior and agitation. Add Benadryl 50 mg twice a day for EPS. ICD Code: F20.0 Assessment & Plan Estimated LOS: Miguel Barroso MD Jan 02, 2017 14:18
[2017-01-02] MEDS: diphenhydrAMINE HCL 50 MG CAP PO SCH ×2 (17:44→21:12)
[2017-01-03] MEDS: diphenhydrAMINE HCL 50 MG CAP PO SCH ×3 (08:30→20:06)
[2017-01-03] MEDS ORDERED: ARIPiprazole 5 MG TAB PO SCH (09:00)
[2017-01-03 11:04] LABS: AUTOMATED NEUTROPHIL # 2.9 TH/MM3 (1.8-7.7); BASOPHIL % 0.4 % (0.0-2.0); EOSINOPHIL # 0.1 TH/MM3 (0-0.4); EOSINOPHIL % 2.6 % (0.0-4.0); HEMATOCRIT 44.7 % (39.0-51.0); HEMO FLAGS DIFF FINAL; LYMPH % 26.9 % (9.0-44.0); LYMPHOCYTE # 1.3 TH/MM3 (1.0-4.8); MEAN CELL VOLUME 84.5 FL (80.0-100.0); MEAN CORPUSCULAR HEMOGLOBIN 28.4 PG (27.0-34.0); MEAN CORPUSCULAR HGB CONC 33.6 % (32.0-36.0); MONO % 10.3 % (0.0-8.0); NEUT % 59.8 % (16.0-70.0); PLATELET COUNT 219 TH/MM3 (150-450); RED BLOOD COUNT 5.28 MIL/MM3 (4.50-5.90); RED CELL DISTRIBUTION WIDTH 14.2 % (11.6-17.2); WHITE BLOOD COUNT 4.8 TH/MM3 (4.0-11.0)
--- NOTE | 2017-01-03 14:30 | HHI.PYPN ---
Subjective Remarks Patient was seen today for psychiatric reevaluation along with medical student Shashank, she continues to be very disorganized, giving very limited information about himself, most of the things that he is talking are not reliable information nonsensical, illogical. Patient has a pronounced loosening of associations, word salad and tangential thoughts. However, he is taking his medications, no significant side effects reported so far. Patient has not been agitated or aggressive in the unit. Review of Systems Other No somatic complaints Objective Alert: Yes [place]: Person, Place, Date Mood: Oppositional Affect: Restricted Memory Intact: Comment (unable to be assessed) Hallucinations: Other (internally stimulated) Delusions: Yes Delusion Type: Paranoid Suicidal: Ideation (no SI) Homicidal: Ideation (no HI) Insight/Judgment Poor Labs Test 01/03/17 09:53 White Blood Count 4.8 TH/MM3 Red Blood Count 5.28 MIL/MM3 Hemoglobin 15.0 GM/DL Hematocrit 44.7 % Mean Corpuscular Volume 84.5 FL Mean Corpuscular Hemoglobin 28.4 PG Mean Corpuscular Hemoglobin 33.6 % Concent Red Cell Distribution Width 14.2 % Platelet Count 219 TH/MM3 Mean Platelet Volume 10.1 FL Neutrophils (%) (Auto) 59.8 % Lymphocytes (%) (Auto) 26.9 % Monocytes (%) (Auto) 10.3 % Eosinophils (%) (Auto) 2.6 % Basophils (%) (Auto) 0.4 % Neutrophils # (Auto) 2.9 TH/MM3 Lymphocytes # (Auto) 1.3 TH/MM3 Monocytes # (Auto) 0.5 TH/MM3 Eosinophils # (Auto) 0.1 TH/MM3 Basophils # (Auto) 0.0 TH/MM3 CBC Comment DIFF FINAL Differential Comment Vitals/IOs Vital Signs Date Time Temp Pulse Resp B/P Pulse Ox O2 Delivery O2 Flow Rate FiO2 01/02/17 05:56 97.3 71 16 112/60 98 01/01/17 14:59 Room Air Assessment & Plan Problem List: (1) Schizophrenia, paranoid type Assessment & Plan: Patient continues to be floridly psychotic. Will discontinue Abilify and start Risperdal 1 mg twice a day for psychosis. Also will start Benadryl 25 mg twice a day for EPS. Labs reviewed. ICD Code: F20.0 Assessment & Plan Estimated LOS: days Justification for Cont. Inpt. Patient is acutely psychotic, very disorganized and tangential, he needs to continue psychiatric hospitalization for stabilization. Miguel Martins MD Jan 03, 2017 14:30
[2017-01-03] MEDS: risperiDONE 1 MG TAB PO SCH ×2 (15:00→20:06)
[2017-01-03 17:05] LABS: HEMOGLOBIN A1a 1.2 %; HEMOGLOBIN A1b 0.8 %; HEMOGLOBIN F 0.7 %; HEMOGLOBIN LA1C 1.8 %; HEMOGLOBIN P3 3.5 %
[2017-01-03 18:16] VITALS: BP 113/63; PULSE 66; RESP 18; TEMP 98.2; O2SAT 98
[2017-01-03] MEDS: diphenhydrAMINE HCL 25 MG CAP PO SCH (20:06)
[2017-01-04] MEDS: risperiDONE 1 MG TAB PO SCH ×2 (09:00→20:44)
[2017-01-04] MEDS: diphenhydrAMINE HCL 25 MG CAP PO SCH ×2 (09:00→20:43)
[2017-01-04] MEDS: diphenhydrAMINE HCL 50 MG CAP PO SCH ×2 (09:00→20:43)
[2017-01-04 11:23] LABS: ANION GAP 5 MEQ/L (5-15); AST (GOT) 19 U/L (15-37); BICARBONATE 27.7 MEQ/L (21.0-32.0); BLOOD UREA NITROGEN 15 MG/DL (7-18); CHLORIDE 105 MEQ/L (98-107); GLOMERULAR FILTRATION RATE 99 ML/MIN (>89); POTASSIUM 4.2 MEQ/L (3.5-5.1); SODIUM (NA) 138 MEQ/L (136-145)
[2017-01-04 11:50] LABS: ALKALINE PHOSPHATASE 95 U/L (45-117); ALT (GPT) 49 U/L (12-78); HDL CHOLESTEROL 55.3 MG/DL (40.0-60.0); LDL CHOLESTEROL 40 MG/DL (0-99); TOTAL BILIRUBIN ADULT 0.4 MG/DL (0.2-1.0)
--- NOTE | 2017-01-04 14:17 | HHI.PYPN ---
Subjective Remarks Patient was seen for psychiatric reevaluation today, he was found in the recreational area of the 2700 unit, he seems to be less irritable and more engageable in a conversation that yesterday. However, patient still very disorganized, tangential, guarded, visibly internally stimulated. He says that he has been feeling that "some of the people here are putting Fiber Technician in my blood " "I do not like some people here, I feel they're looking at me too much". Patient says that he would not attack anybody. He denies mood symptoms, he denies anxiety, he denies EPS, he denies visual and auditory hallucinations, he denies suicidal and homicidal ideation. He has been compliant with his medications, no significant side effects. Patient says that he wants to take his medication, get better, and be discharged. Review of Systems Other No somatic complaints today Objective Alert: Yes [place]: Person, Place, Date Mood: Oppositional Affect: Restricted Memory Intact: Comment (unable to be assessed) Hallucinations: Other (internally stimulated) Delusions: Yes Delusion Type: Paranoid Suicidal: Ideation (no SI) Homicidal: Ideation (no HI) Insight/Judgment Poor Labs Test 01/04/17 10:33 Sodium Level 138 MEQ/L Potassium Level 4.2 MEQ/L Chloride Level 105 MEQ/L Carbon Dioxide Level 27.7 MEQ/L Anion Gap 5 MEQ/L Blood Urea Nitrogen 15 MG/DL Creatinine 0.88 MG/DL Estimat Glomerular Filtration 99 ML/MIN Rate Random Glucose 110 MG/DL Calcium Level 8.8 MG/DL Total Bilirubin 0.4 MG/DL Aspartate Amino Transf 19 U/L (AST/SGOT) Alanine Aminotransferase 49 U/L (ALT/SGPT) Alkaline Phosphatase 95 U/L Total Protein 7.1 GM/DL Albumin 3.8 GM/DL Triglycerides Level 224 MG/DL Cholesterol Level 140 MG/DL LDL Cholesterol 40 MG/DL HDL Cholesterol 55.3 MG/DL Cholesterol/HDL Ratio 2.53 RATIO Vitamin B12 Level 224 PG/ML 25-Hydroxy Vitamin D Total 32.9 ng/ML Thyroid Stimulating Hormone 1.470 uIU/ML 3rd Gen Vitals/IOs Vital Signs Date Time Temp Pulse Resp B/P Pulse Ox O2 Delivery O2 Flow Rate FiO2 01/03/17 18:16 98.2 66 18 113/63 98 8/15/17 14:59 Room Air Assessment & Plan Problem List: (1) Schizophrenia, paranoid type Assessment & Plan: Patient shows a modest sign of improvement, but still very paranoid, disorganized, internally stimulated. We will increase Risperdal to 2 mg twice a day. ICD Code: F20.0 Assessment & Plan Estimated LOS: days Justification for Cont. Inpt. Patient is acutely floridly psychotic, and is to continue psychiatric hospitalization for stabilization. Miguel Martins MD Jan 04, 2017 14:17
[2017-01-04 18:08] VITALS: BP 112/65; PULSE 96; RESP 18; TEMP 98.3; O2SAT 96
[2017-01-04 18:12] VITALS: BP 109/59; PULSE 66; RESP 18; TEMP 93.3; O2SAT 98
[2017-01-05] MEDS: risperiDONE 1 MG TAB PO SCH ×2 (09:00→20:39)
[2017-01-05] MEDS: diphenhydrAMINE HCL 50 MG CAP PO SCH ×2 (09:00→20:39)
[2017-01-05] MEDS: diphenhydrAMINE HCL 25 MG CAP PO SCH ×2 (09:00→20:39)
--- NOTE | 2017-01-05 17:39 | HHI.PYPN ---
Subjective Remarks Patient was seen and case discussed with nursing. Patient is oppositional and answering appropriately to questions. Focused that his diagnosis of Tourette syndrome. No signs of Tourette's were evidenced during this interview. Thought processes disorganized. Auditory hallucinations are "from far away." Objective Alert: Yes [place]: Person, Place, Date Mood: Oppositional Affect: Restricted Memory Intact: Comment (unable to be assessed) Hallucinations: Other (internally stimulated) Delusions: Yes Delusion Type: Paranoid Suicidal: Ideation (no SI) Homicidal: Ideation (no HI) Insight/Judgment Poor Vitals/IOs Vital Signs Date Time Temp Pulse Resp B/P Pulse Ox O2 Delivery O2 Flow Rate FiO2 01/04/17 18:12 93.3 66 18 109/59 98 01/01/17 14:59 Room Air Assessment & Plan Problem List: (1) Schizophrenia, paranoid type ICD Code: F20.0 Assessment & Plan Continue current treatment plan Justification for Cont. Inpt. Patient would decompensate in a less restrictive setting Jelani Dallas DO Jan 05, 2017 17:39
[2017-01-05 18:41] VITALS: BP 112/59; PULSE 73; RESP 18; TEMP 98.1; O2SAT 98
[2017-01-06 06:19] VITALS: BP 102/66; PULSE 75; RESP 18; TEMP 97.6; O2SAT 100
[2017-01-06] MEDS: diphenhydrAMINE HCL 25 MG CAP PO SCH ×2 (09:00→20:43)
[2017-01-06] MEDS: risperiDONE 1 MG TAB PO SCH ×2 (09:00→20:43)
[2017-01-06] MEDS: diphenhydrAMINE HCL 50 MG CAP PO SCH ×2 (09:00→20:43)
[2017-01-06 17:00] VITALS: BP 113/57; PULSE 70; RESP 18; TEMP 97.9; O2SAT 98
--- NOTE | 2017-01-06 19:26 | HHI.PYPN ---
Subjective Remarks Patient was seen and case discussed with nursing. Patient is disheveled and disorganized during the interview. She remains preoccupied on his genitals. He has been seclusive throughout the day. He does of an irritable edge. Has not had any outbursts today. He denies psychotic thoughts but is the interview asking me with the [employer] is in relation to the hospital Objective Alert: Yes [place]: Person, Place, Date Mood: Oppositional Affect: Flat Memory Intact: Comment (unable to be assessed) Hallucinations: Other (internally stimulated) Delusions: Yes Delusion Type: Paranoid Suicidal: Ideation (no SI) Homicidal: Ideation (no HI) Insight/Judgment Poor Vitals/IOs Vital Signs Date Time Temp Pulse Resp B/P (MAP) Pulse Ox O2 Delivery O2 Flow Rate FiO2 01/06/17 17:00 97.9 70 18 113/57 (75) 98 Assessment & Plan Problem List: (1) Schizophrenia, paranoid type ICD Codes: F20.0 - Paranoid schizophrenia Status: Acute Assessment & Plan Continue current treatment plan Justification for Cont. Inpt. Patient would decompensate in a less restrictive setting Jelani Dallas DO Jan 06, 2017 19:26
[2017-01-06] MEDS: ALUMINUM/MAGNESIUM/SIMETH 30 ML CUP PO PRN (22:05)
[2017-01-07 05:46] VITALS: BP 120/57; PULSE 76; RESP 18; TEMP 98.1; O2SAT 97
[2017-01-07] MEDS: diphenhydrAMINE HCL 50 MG CAP PO SCH ×2 (08:24→20:03)
[2017-01-07] MEDS: diphenhydrAMINE HCL 25 MG CAP PO SCH ×2 (08:24→20:03)
[2017-01-07] MEDS: risperiDONE 1 MG TAB PO SCH (08:25)
[2017-01-07] MEDS: HALOPERIDOL 5 MG TAB PO SCH ×2 (13:15→20:03)
[2017-01-07] MEDS ORDERED: HALOPERIDOL LACTATE 5 MG/ML AMP IM PRN (13:15)
--- NOTE | 2017-01-07 13:20 | HHI.PYPN ---
Subjective Remarks Patient seen today for psychiatric evaluation, patient is calm, cooperative, engageable in a conversation, but continues to be very disorganized, no making much sense, preoccupied with his genitals. Refusing to take medications, he says that he does want to take risperidone "because I am allergic to risperidone and Benadryl". As per nurses, patient has been disorganized, at times disruptive, during the week needed to be secluded, but police in the last 24 hours no episodes of aggression or agitation reported. Review of Systems Other No somatic complaints Objective Alert: Yes [place]: Person, Place, Date Mood: Oppositional Affect: Flat Memory Intact: Comment (unable to be assessed) Hallucinations: Other (internally stimulated) Delusions: Yes Delusion Type: Paranoid Suicidal: Ideation (no SI) Homicidal: Ideation (no HI) Insight/Judgment Poor Vitals/IOs Vital Signs Date Time Temp Pulse Resp B/P (MAP) Pulse Ox O2 Delivery O2 Flow Rate FiO2 01/07/17 05:46 98.1 76 18 120/57 (78) 97 Assessment & Plan Problem List: (1) Schizophrenia, paranoid type ICD Codes: F20.0 - Paranoid schizophrenia Status: Acute Assessment & Plan: Will discontinue risperidone 2 mg twice a day. Order Haldol 5 by mouth mg twice a day, and Haldol 5 mg twice a day IM if patient refuses by mouth. Assessment & Plan Estimated LOS: days Justification for Cont. Inpt. Patient is floridly psychotic and is to continue psychiatric hospitalization for stabilization. Miguel Martins MD Jan 07, 2017 13:20
[2017-01-07] MEDS: ACETAMINOPHEN 325 MG TAB PO PRN (16:10)
[2017-01-07 18:15] VITALS: BP 109/70; PULSE 59; RESP 16; TEMP 98; O2SAT 99
[2017-01-07] MEDS: traZODone HCL 50 MG TAB PO PRN (20:03)
[2017-01-07] MEDS: ALUMINUM/MAGNESIUM/SIMETH 30 ML CUP PO PRN (20:37)
[2017-01-07] MEDS: LORazepam 1 MG TAB PO PRN (23:05)
[2017-01-08 05:54] VITALS: BP 108/60; PULSE 63; RESP 16; TEMP 98.4; O2SAT 97
[2017-01-08] MEDS: diphenhydrAMINE HCL 25 MG CAP PO SCH ×2 (08:38→20:50)
[2017-01-08] MEDS: diphenhydrAMINE HCL 50 MG CAP PO SCH ×2 (08:38→20:50)
[2017-01-08] MEDS: HALOPERIDOL 5 MG TAB PO SCH ×2 (08:38→20:50)
[2017-01-08] MEDS: LORazepam 1 MG TAB PO PRN (12:53)
[2017-01-08] MEDS: ACETAMINOPHEN 325 MG TAB PO PRN (13:54)
--- NOTE | 2017-01-08 14:15 | HHI.PYPN ---
Subjective Remarks Patient seen for evaluation today, he seems to be more engageable in a conversation, calm her and less agitated than previous days, he reports that he has been taking his medications, he asked if he can be discharged, but is unable to articulate a safety issue plan. In fact, patient continues to be disorganized, saying that "I dont need a passport to travel to another [facility]". He denies suicidal and homicidal ideation, he denies visual and auditory hallucinations. But, prominent loosening of associations, tangentiality and impaired compared with the reality still present. He is oriented 3. He has been compliant with his medications in the last 24 hours, no significant side effects reported. Review of Systems Other No somatic complaints Objective Alert: Yes [place]: Person, Place, Date Mood: Oppositional Affect: Flat Memory Intact: Comment (unable to be assessed) Hallucinations: Other (internally stimulated) Delusions: Yes Delusion Type: Paranoid Suicidal: Ideation (no SI) Homicidal: Ideation (no HI) Insight/Judgment Poor Vitals/IOs Vital Signs Date Time Temp Pulse Resp B/P (MAP) Pulse Ox O2 Delivery O2 Flow Rate FiO2 01/08/17 05:54 98.4 63 16 108/60 (28) 97 Assessment & Plan Problem List: (1) Schizophrenia, paranoid type ICD Codes: F20.0 - Paranoid schizophrenia Status: Acute Assessment & Plan: Patient continues to be acutely psychotic, will increase Haldol to 5 mg in the morning and 10 mg at bedtime. Assessment & Plan Estimated LOS: days Justification for Cont. Inpt. Patient is acutely psychotic, with very poor contact with reality, needs continue psychiatric hospitalization for stabilization. Miguel Martins MD Jan 08, 2017 14:15
[2017-01-08 17:55] VITALS: BP 112/65; PULSE 65; RESP 18; TEMP 98.1; O2SAT 100
[2017-01-09] MEDS: diphenhydrAMINE HCL 50 MG CAP PO SCH ×2 (09:10→20:21)
[2017-01-09] MEDS: diphenhydrAMINE HCL 25 MG CAP PO SCH ×2 (09:10→20:21)
[2017-01-09] MEDS: HALOPERIDOL 5 MG TAB PO SCH (09:10)
--- NOTE | 2017-01-09 09:54 | HHI.PYPN ---
Subjective Remarks Patient seen and examined with counselor in coverage for Dr. Martins. Chart reviewed. Case discussed with nursing staff. Patient seems fairly appropriate in our interaction today. He denies SI/HI. Denies AVH, although he does perhaps remain a little internally preoccupied. He does not articulate any delusional material and now denies delusional material he had reported earlier in the admission. He is tolerating psychotropics well without side effects besides reports of mild tremor at HS. I have offered him a scheduled anticholinergic, but he says the Benadryl he received last night was helpful, and he would rather continue with this. Patient is also on a smaller, scheduled dose of Benadryl. We discuss the possibility of Haldol Dec, and he is not completely dismissive of this possibility. Requests Albuterol inhaler PRN, says he uses this outpatient. Breathing easily now. No physical complaints. Review of Systems Except as stated in HPI: all other systems reviewed are Neg Objective Alert: Yes [place]: Person, Place, Date Mood: Calm Affect: Appropriate Memory Intact: Comment (not formally assessed) Hallucinations: Other (Denies AVH but remains a little internally preoccupied) Delusions: No Delusion Type: Other (No delusions elicited) Suicidal: Ideation (Denies SI) Homicidal: Ideation (Denies HI) Insight/Judgment Poor Remarks No motor abnormalities noted. No hand tremor, no dystonia, no dyskinesia appreciated at this time. Thought process seems fairly linear today. Grooming and hygiene fair. Labs Labs reviewed. Vitals/IOs Vital Signs Date Time Temp Pulse Resp B/P (MAP) Pulse Ox O2 Delivery O2 Flow Rate FiO2 01/08/17 17:55 98.1 65 18 112/65 (81) 100 Assessment & Plan Problem List: (1) Schizophrenia, paranoid type ICD Codes: F20.0 - Paranoid schizophrenia Status: Acute Assessment & Plan Relative to previous days presentation, patient seems improved today. He is tolerating the Haldol well with only very mild side effects. I note that Dr. Martins and plan to titrate the Haldol to 5/10 mg, and I paid this medication change now. We could consider Haldol Decanoate. I have added the albuterol inhaler as the patient wishes. Continue to monitor on the inpatient unit. Patient may sign voluntary. Continue other medications and care as ordered. Justification for Cont. Inpt. Medication changes in process. Risk for decompensation in less restrictive environment. Discharge Planning Pending stabilization Request HC Surrog/Guard Advoc?: No Romulo Brown MD Jan 09, 2017 09:54
[2017-01-09] MEDS: ACETAMINOPHEN 325 MG TAB PO PRN (10:37)
[2017-01-09] MEDS ORDERED: ALBUTEROL SULFATE 90 MCG/ACT HFA 8 GM INHALER INH PRN (11:00)
--- NOTE | 2017-01-09 15:20 | RADRPT ---
EXAM DATE/TIME: 01/09/2017 14:19 [facility] COMPARISON: No previous studies available for comparison. INDICATIONS : Right wrist pain due to fall date unknown. MEDICAL HISTORY : None. SURGICAL HISTORY : None. ENCOUNTER: Initial ACUITY: 1 day PAIN SCORE: 2/10 LOCATION: Right Wrist. FINDINGS: Two view examination of the right wrist demonstrates no soft tissue swelling, dislocation, or fractur e. The joint spaces are maintained. Bony mineralization is normal. CONCLUSION: No acute disease. Faustino Carbajal MD on January 09, 2017 at 15:19 Board Certified Radiologist. This report was verified electronically.
[2017-01-09 19:47] VITALS: BP 121/87; PULSE 64; RESP 18; TEMP 97.9; O2SAT 87
[2017-01-09] MEDS ORDERED: HALOPERIDOL 10 MG TAB PO SCH (21:00)
[2017-01-10 07:51] VITALS: O2SAT 97
[2017-01-10] MEDS ORDERED: HALOPERIDOL 5 MG TAB PO SCH (09:00)
[2017-01-10] MEDS: diphenhydrAMINE HCL 25 MG CAP PO SCH (09:39)
[2017-01-10] MEDS: diphenhydrAMINE HCL 50 MG CAP PO SCH (09:39)
[2017-01-10] MEDS ORDERED: HALO5TAB PO (10:34)
[2017-01-10] MEDS ORDERED: VENTAER INH (10:34)
[2017-01-10] MEDS ORDERED: HALO10TA PO (10:34)
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
[2017-01-10] MEDS: ACETAMINOPHEN 325 MG TAB PO PRN (11:11)
== END 2017-01-10 16:05 | disposition left against medical advice (07) | DRG 885 ==
LOC: NEPE 06:06 → NEDA 12:33 → H270 18:10
PROVIDERS: ADMIT Psychiatry & Neurology Psychiatry; ATTEND Psychiatry & Neurology Psychiatry
DX: F20.0 Paranoid schizophrenia (principal); Z59.0 Homelessness; F31.9 Bipolar disorder, unspecified; F17.210 Nicotine dependence, cigarettes, uncomplicated; R30.9 Painful micturition, unspecified
CPT/HCPCS: 73100; 80053; 80061; 80307; 81001; 82306; 82607; 83036; 84443; 85025; 87491; 87591; Q0163

== ENCOUNTER 2017-01-11 08:58 | Emergency (ER) | payer MEDICAID ==
[~2017-01-11 08:58] MED LIST changes: +HALO10TA PO; +HALO5TAB PO; -OMEP20TA PO; +VENTAER INH
[2017-01-11 09:00] VITALS: BP 137/74; PULSE 65; RESP 18; TEMP 98.4; O2SAT 99
--- NOTE | 2017-01-11 09:36 | PD ---
HPI Chief Complaint: Respiratory Distress Time Seen by Provider: 09:27 Travel History International Travel<30 days: No Contact w/Intl Traveler<30days: No Traveled to known affect area: No History of Present Illness HPI 36 yo homeless male with bdp and possibly schizophrenia presents complaining of feleing dehydrated. He had some vomiting couple days ago. States he took a cold glands. Not for commitment much history. History Past Medical History Narrative Medical Bipolar disorder Social History Alcohol Use: Yes Tobacco Use: Yes (3-4 CIGARETTES PER DAY) Allergies-Medications (Allergen,Severity, Reaction): Coded Allergies: pineapple (Unverified Allergy, Severe, 01/11/17) Reported Meds & Prescriptions Reported Meds & Active Scripts Active Ventolin Hfa 18 GM Inh (Albuterol Sulfate) 90 Mcg/Act Aer 2 Puff INH Q6H PRN Haloperidol 10 Mg Tab 10 Mg PO HS 10 Days Haloperidol 5 Mg Tab 5 Mg PO DAILY 10 Days Review of Systems Except as stated in HPI: all other systems reviewed are Neg Physical Exam Narrative GENERAL: Well printed for old man, bizarre, no acute distress. SKIN: Focused skin assessment warm/dry. HEAD: Atraumatic. Normocephalic. EYES: Pupils equal and round. No scleral icterus. No injection or drainage. ENT: No nasal bleeding or discharge. Mucous membranes pink and moist. NECK: Trachea midline. No JVD. CARDIOVASCULAR: Regular rate and rhythm. No murmur appreciated. RESPIRATORY: No accessory muscle use. Clear to auscultation. Breath sounds equal bilaterally. GASTROINTESTINAL: Abdomen soft, non-tender, nondistended. Hepatic and splenic margins not palpable. MUSCULOSKELETAL: No obvious deformities. No clubbing. No cyanosis. No edema. NEUROLOGICAL: Awake and alert. No obvious cranial nerve deficits. Motor grossly within normal limits. Normal speech. PSYCHIATRIC: Bizarre. Data Data Last Documented VS Vital Signs Date Time Temp Pulse Resp B/P (MAP) Pulse Ox O2 Delivery O2 Flow Rate FiO2 01/11/17 09:00 98.4 65 18 137/74 (95) 99 MDM Medical Decision Making Medical Screen Exam Complete: Yes Emergency Medical Condition: Yes Differential Diagnosis Dehydration, schizophrenia, weakness, other Narrative Course Medical decision-making 36 old man complains of feeling dehydrated. States it MUCH water at the [facility]. He states someone start from this fall. He looks well. Does not appear clinically dehydrated. Appears to be schizophrenic. Recommend by mouth hydration and outpatient follow-up. Diagnosis Primary Impression: Schizophrenia, paranoid type Additional Instructions: Drink plenty of fluids and stay well-hydrated. Med/Other Pt SpecificInfo: No Change to Meds Disposition: 01 DISCHARGE HOME Condition: Stable Nicolas Nguyen MD Jan 11, 2017 09:36
== END 2017-01-11 09:46 | disposition home or self-care (01) ==
LOC: NEPD 08:58
DX: F20.0 Paranoid schizophrenia (principal); F31.9 Bipolar disorder, unspecified; R11.10 Vomiting, unspecified; F17.210 Nicotine dependence, cigarettes, uncomplicated; Z79.899 Other long term (current) drug therapy
CPT/HCPCS: 99282